=== PATIENT | female | born 1975 | race Caucasian/White ===

== ENCOUNTER → 2020-06-08 | Outpatient (CLI) | payer BC, OTHER ==
[~2020-06-08] MED LIST: ALPR0.25 PO; ESCI10TA10 PO; IBUP-1623 PO; LANS30CA60 PO; LEVO150T61 PO; MULT-658 PO
[2020-06-08 16:55] LABS: BASOPHILS % (AUTO) 1 % (0-1); EOSINOPHILS % (AUTO) 2 % (1-7); LYMPHOCYTES % (AUTO) 23 % (22-44); MEAN CORPUSCULAR HEMOGLOBIN 25.8 pg (27.0-34.8); MEAN CORPUSCULAR HGB CONC 32.2 g/dL (32.4-35.8); MEAN PLATELET VOLUME 7.8 fL (7.4-10.4); MONOCYTES % (AUTO) 7 % (2-9); NEUTROPHILS % (AUTO) 67 % (42-75); PLATELET COUNT 337 x10^3/uL (130-400); RED BLOOD COUNT 4.82 x10^6/uL (3.82-5.3); RED CELL DISTRIBUTION WIDTH 15.8 % (9.6-15.2)
[2020-06-08 17:02] LABS: MD NO
[2020-06-08 17:13] LABS: MICROSCOPIC NOT IND
== END | disposition home or self-care (01) ==
LOC: STAR 15:27
PROVIDERS: ATTEND Obstetrics & Gynecology
DX: Z01.818 Encounter for other preprocedural examination (principal); N39.3 Stress incontinence (female) (male)
CPT/HCPCS: 36415; 81003; 85025

== ENCOUNTER 2020-06-15 07:35 | Day surgery (SDC) | payer BC, OTHER ==
[~2020-06-15] VITALS: Ht 172.7 cm; Wt 104.5 kg
[2020-06-15] MEDS ORDERED: FLUORESCEIN SODIUM 500 MG/5 ML ONE (07:41)
[2020-06-15] MEDS ORDERED: NEOMY/POLYMYXIN B GU IRR. 1 ML ONE (07:41)
[2020-06-15] MEDS ORDERED: EPINEPHRINE 1 MG/ML, 1ML ONE (07:41)
[2020-06-15] MEDS ORDERED: BUPIVACAINE/PF 0.25% ONE (07:41)
[2020-06-15] MEDS ORDERED: ACETAMINOPHEN 500 MG TABLET PO STA (07:47)
[2020-06-15] MEDS ORDERED: FENTANYL PF 250 MCG/5ML ONE (07:48)
[2020-06-15] MEDS ORDERED: MIDAZOLAM 1 MG/ML, 2ML ONE (07:48)
[2020-06-15] MEDS ORDERED: CHLORHEXIDINE 15 ML UDC MM STA (07:48)
[2020-06-15] MEDS ORDERED: LACTATED RINGERS 1,000 ML IV ONE (07:48)
[2020-06-15] MEDS ORDERED: CHLORHEXIDINE 15 ML UDC ONE (07:56)
[2020-06-15 08:04] LABS: HCG UR SG 1.026 (1.003-1.030)
[2020-06-15] MEDS ORDERED: CEFAZOLIN 1,000 MG ONE (08:17)
[2020-06-15] MEDS ORDERED: DEXAMETHASONE 4 MG/ML, 1ML ONE (08:17)
[2020-06-15] MEDS ORDERED: ONDANSETRON 2MG/ML, 2ML ONE (08:17)
[2020-06-15] MEDS ORDERED: PROPOFOL 50 ML ONE (08:33)
[2020-06-15] MEDS ORDERED: HYDROmorphone 1 MG/ML, 1ML INJ IVPush PRN (09:00)
[2020-06-15] MEDS ORDERED: LORazepam 2 MG/ML, 1ML IVPush PRN (09:00)
[2020-06-15] MEDS ORDERED: ONDANSETRON 2MG/ML, 2ML IVPush PRN (09:00)
[2020-06-15] MEDS ORDERED: DIAZEPAM 5 MG/ML, 2ML IVPush PRN (09:00)
[2020-06-15] MEDS ORDERED: ACETAMINOPHEN 325 MG TABLET PO PRN (09:00)
[2020-06-15] MEDS ORDERED: FENTANYL PF 100 MCG/2ML IV PRN (09:00)
[2020-06-15] MEDS ORDERED: MEPERIDINE/PF 25MG/0.5ML IVPush PRN (09:00)
[2020-06-15] MEDS ORDERED: OXYcodone 5 MG/5 ML ORAL.SOL UDC PO PRN (09:00)
== END 2020-06-15 12:05 | disposition home or self-care (01) ==
LOC: OUT 07:35
PROVIDERS: ATTEND Obstetrics & Gynecology
DX: N39.3 Stress incontinence (female) (male) (principal); F41.9 Anxiety disorder, unspecified; E89.0 Postprocedural hypothyroidism; Z79.899 Other long term (current) drug therapy; Z88.8 Allergy status to other drugs, medicaments and biological substances; Z91.048 Other nonmedicinal substance allergy status; Z82.49 Family history of ischemic heart disease and other diseases of the circulatory system; Z80.3 Family history of malignant neoplasm of breast
CPT/HCPCS: 57288; 81025; C1771; J0171; J0690; J1100; J2250; J2405; J2704; J3010; J7120